=== PATIENT | female | born 1975 | race Caucasian/White ===

== ENCOUNTER 2019-05-05 08:20 | Inpatient (IN) ==
--- NOTE | 2019-04-20 09:15 | PAT Medication Instructions ---
Medication Instructions Date of Service April 20, 2019 Home Medications clonazepam 0.5 mg PO DAILY fluoxetine [Prozac] 40 mg PO QAM metoclopramide HCl 10 mg PO UD PRN omeprazole 40 mg PO QAM oxycodone 15 mg PO QID ranitidine HCl [Zantac 75] 75 mg PO HS tizanidine [Zanaflex] 4 mg PO Q8H PRN trazodone 400 mg PO HS 09/14/18 Stool Softeners And Dulcalox 1 dose UD acetaminophen [Tylenol Extra Strength] 1,000 mg PO QAM aripiprazole [Abilify] 20 mg PO HS zolpidem 10 mg PO HS DO NOT take the morning of surgery metoclopramide HCl 10 mg PO UD PRN tizanidine [Zanaflex] 4 mg PO Q8H PRN Stool Softeners And Dulcalox 1 dose UD Take morning of surgery With a small sip of water, OTHERWISE NOTHING TO EAT OR DRINK AFTER MIDNIGHT: clonazepam 0.5 mg PO DAILY fluoxetine [Prozac] 40 mg PO QAM omeprazole 40 mg PO QAM oxycodone 15 mg PO QID (okay to take up to 4 hours prior to surgery if needed) acetaminophen [Tylenol Extra Strength] 1,000 mg PO QAM (okay to take up to 4 hours prior to surgery if needed) Take evening before surgery metoclopramide HCl 10 mg PO UD PRN (if needed) oxycodone 15 mg PO QID ranitidine HCl [Zantac 75] 75 mg PO HS tizanidine [Zanaflex] 4 mg PO Q8H PRN (if needed) trazodone 400 mg PO aripiprazole [Abilify] 20 mg PO HS zolpidem 10 mg PO HS Other Notes If you have any questions please call us at [phone] or [phone] or [phone] or [phone]
--- NOTE | 2019-04-21 08:16 | Anesthesiology Consultation ---
Date of Service April 21, 2019 Assessment & Plan (1) Encounter for pre-operative examination: - Awaiting PCP office visit scheduled 04/25 (JEANNE Luis). - Patient taking oxycodone 15mg QID- t/c ketamine infusion; to discuss further with anesthesiologist assigned to case. Chart Review Chart Review: Patient seen in Pre Admission Testing Teaching & Discussion Pre-Anesthesia Teaching/Discussion Notes: Instructed NPO after midnight before surgery,except medications with 15 cc of water. Medication instructions provided according to the PAT guidelines. History Surgery Operation Date: 05/05/19 07:45 Proposed Procedures p L2-L5 Decompression and Fusion with Spinal Cord Monitoring - Mario Blake, Height/Weight Height: 5 ft 5.5 in Weight: 91.5 kg Allergies Allergy/AdvReac Type Severity Reaction Status Date / Time Sulfa (Sulfonamide AdvReac Unknown Rash Verified 04/17/19 08:20 Antibiotics) Medications Home Medications Medication Instructions Recorded Confirmed Last Taken clonazepam 0.5 mg PO DAILY 09/14/18 04/17/19 09/14/18 06:00 fluoxetine [Prozac] 40 mg PO QAM 09/14/18 04/17/19 04/17/19 metoclopramide HCl 10 mg PO UD PRN 09/14/18 04/17/19 09/13/18 omeprazole 40 mg PO QAM 09/14/18 04/17/19 04/17/19 oxycodone 15 mg PO QID 09/14/18 04/17/19 09/14/18 06:00 ranitidine HCl [Zantac 75] 75 mg PO HS 09/14/18 04/17/19 09/13/18 tizanidine [Zanaflex] 4 mg PO Q8H PRN 09/14/18 04/17/19 09/13/18 trazodone 400 mg PO HS 09/14/18 04/17/19 09/13/18 Stool Softeners And Dulcalox 1 dose UD 04/17/19 04/17/19 Unknown acetaminophen [Tylenol Extra 1,000 mg PO QAM 04/17/19 04/17/19 04/17/19 Strength] aripiprazole [Abilify] 20 mg PO HS 04/17/19 04/17/19 Unknown zolpidem 10 mg PO HS 04/17/19 04/17/19 Unknown Past Medical History Medical History (Updated 04/21/19 @ 14:02 by Cadence Rossi) Anxiety Arthritis cervical Asthma + chronic cough Bipolar disorder Chronic kidney disease Depression GERD (gastroesophageal reflux disease) controlled Graves disease per patient, has never been on medications/euthyroid on 04/21/19 labs History of blood transfusion 3+ years ago in setting of bleeding related to heavy menstrual bleeding History of seizures "anxiety" related- no seizures x 2 years Hives related to "nerves" Menopause per records Menorrhagia Obesity Peptic ulcer disease Pulmonary embolism 3 years ago- no issues since Radiculopathy with lower extremity symptoms Scoliosis Yeast infection "chronic" Exercise / Class Metabolic Activity III < 4 Walking/Shop/Light housework (uses walker PRN) Past Surgical History Surgical History History of cholecystectomy History of colonoscopy History of endoscopy History of surgery L LEG X2/HARDWARE History of surgery HX MORPHINE PAIN PUMP AND SINCE REMOVED History of tonsillectomy History of urologic surgery BLADDER STRETCH Past Anesthesia History No Family Hx of Anesthesia Complications and Other Patient report initial awareness with cholecystectomy/tonsillectomy. Patient states she felt the "initial" cuts during cholecystectomy. History of PONV No Hx of PONV and Hx of Motion Sickness Social History Smoking Status: Never smoker Do You Dip or Chew Tobacco: No Hx Alcohol Use: No Hx Substance Use: No Review of Systems + reflux. Chronic cough. Patient denies chest pain, shortness of breath, wheezing, palpitations. Physical Exam Vital Signs VITALS BP 112/74 P 76 TEMP 98.2 SP02 97%RA RESP 18 PHYSICAL Full neck and c-spine range of motion. Full TMJ range of motion. TMD 4 finger breaths Mallampati Score 3 Dentition: missing side Lungs: clear throughout to auscultation Cardiac: regular rate and rhythm, no murmurs noted Spine: normal Carotid arteries: negative bruit Extremities: no edema Testing Laboratory Results 04/21/19 08:34 04/21/19 08:34 PT 10.1 Seconds (9.0-12.0) 04/21/19 08:34 INR 1.0 (0.9-1.1) 04/21/19 08:34 APTT 25.7 Seconds (21.0-31.0) 04/21/19 08:34 Urine Color Yellow 04/21/19 08:34 Urine Appearance Clear (Clear) 04/21/19 08:34 Urine pH 5.5 (4.5-7.5) 04/21/19 08:34 Ur Specific [place] 1.019 (1.000-1.030) 04/21/19 08:34 Urine Protein Negative (Negative) 04/21/19 08:34 Urine Glucose (UA) Negative (Negative) 04/21/19 08:34 Urine Ketones Negative (Negative) 04/21/19 08:34 Urine Nitrite Negative (Negative) 04/21/19 08:34 Ur Leukocyte Esterase Trace (Negative) H 04/21/19 08:34 Urine WBC (Auto) 1-5 /hpf (0-5) 04/21/19 08:34 Urine RBC (Auto) 0-4 /hpf (0-4) 04/21/19 08:34 U Hyaline Cast (Auto) 1-5 /lpf (0-5) 04/21/19 08:34 U Epithel Cells (Auto) 20-30 /lpf (0-5) H 04/21/19 08:34 Urine Bacteria (Auto) Negative (Negative) 04/21/19 08:34 Blood Type A Positive 04/21/19 08:34 Antibody Screen NEGATIVE 04/21/19 08:34 04/21/19 TSH 0.877 (WNL) Free T4 1.22 (WNL) Total T3 1.21 (WNL) Electrocardiogram Date: 04/21/19 NSR at 73bpm. NS ST/TWA. *unconfirmed report* Chest X-Ray Date: 04/21/19 Findings: + NAD
--- NOTE | 2019-04-21 09:14 | XRay Report ---
XR chest Pre-admission PA/Lat CLINICAL HISTORY: pat preoperative evaluation COMPARISON STUDY: No previous studies for comparison. FINDINGS: The bones soft tissues and hemidiaphragms are normal. The cardiomediastinal silhouette is n ormal. The lungs are clear. The pulmonary vasculature is normal. IMPRESSION: Negative chest. The above report was generated using voice recognition software. It may contain grammatical, syntax or spelling errors. Electronically signed by: Min Strange M.D. 04/21/2019 9:12 AM
[2019-04-21 10:08] LABS: Basophils # (auto) 0.03 K/uL (0-0.2); Basophils % (auto) 0.6 %; Eosinophils # (auto) 0.45 K/uL (0-0.5); Eosinophils % (auto) 8.8 %; Hematocrit (blood only) 39.4 % (37-47); Immature Granulocytes # (auto) 0.01 K/uL (0.00-0.02); Immature Granulocytes % (auto) 0.2 %; Lymphocytes % (auto) 27.3 %; Mean Corpuscular Hemoglobin 32.8 pg (25-34); Mean Corpuscular Volume 99.5 fL (80-100); Mean Platelet Volume 11.4 fL (7.4-10.4); Monocytes % (auto) 11.7 %; Neutrophils # (auto) 2.64 K/uL (1.4-6.5); Neutrophils % (auto) 51.4 %; Platelet Count 200 K/uL (130-400); RDW Coefficient of Variation 12.5 % (11.5-14.5); RDW Standard Deviation 45.3 fL (36.4-46.3); Red Blood Count 3.96 M/uL (4.2-5.4); White Blood Count 5.13 K/uL (4.8-10.8)
[2019-04-21 10:11] LABS: Appearance Urine Clear (Clear); Bacteria Urine Automated Negative (Negative); Bilirubin Urine Negative (Negative); Blood Urine Negative (Negative); Color Urine Yellow; Epithelial Cell Urine Auto 20-30 /lpf (0-5); Glucose Urine UA Negative (Negative); Ketones Urine Negative (Negative); Leukocyte Esterase Urine Trace (Negative); Nitrite Urine Negative (Negative); Protein Urine Negative (Negative); RBC Urine Automated 0-4 /hpf (0-4); Specific Gravity Urine 1.019 (1.000-1.030); Urobilinogen Urine Negative (Negative); pH Urine 5.5 (4.5-7.5)
[2019-04-21 10:14] LABS: BUN Creatinine Ratio 15.4 (10-20); Calcium 8.7 mg/dl (8.5-10.1); Creatinine Clr Calc Pharmacy 111.4 ml/min; Est GFR (African American) 117.2; Est GFR (Non-African American) 101.1; Potassium 3.5 mmol/L (3.5-5.1)
[2019-04-21 10:25] LABS: Partial Thromboplastin Ratio 0.9; Partial Thromboplastin Time 25.7 Seconds (21.0-31.0); Prothrombin Time 10.1 Seconds (9.0-12.0); T4 Free Thyroxine 1.22 ng/dl (0.8-1.6); Thyroid Stimulating Hormone 0.877 uIu/ml (0.300-4.500)
[~2019-05-05 08:20] MED LIST: ACETAMINOPHEN 500 MG TAB PO SCH; CEFAZOLIN 2000MG 2,000 MG/15 ML SYR IV SCH; CeleBREX 200 MG CAP PO SCH; GABAPENTIN 900 MG DOSE PO SCH; HYDROmorphone INJ 2 MG/ML SYR/VIAL ONE; LR 15ML/HR IV SCH; MIDAZOLAM HCL 1 MG/ML 2ML VIAL ONE; PATIENT'S OWN CONTROLLED MED SCH; fentaNYL citrate 100 MCG/2 ML VIAL ONE
[2019-05-05] MEDS ORDERED: HYDROmorphone INJ 2 MG/ML SYR/VIAL IV PRN (09:50)
[2019-05-05] MEDS ORDERED: MEPERIDINE HCL 25 MG/ML CARP IV PRN (09:50)
[2019-05-05] MEDS ORDERED: fentaNYL citrate 100 MCG/2 ML VIAL IV PRN (09:50)
[2019-05-05] MEDS ORDERED: LABETALOL HCL IV 5 MG/ML 20ML IV PRN (09:50)
[2019-05-05] MEDS ORDERED: ONDANSETRON INJ 2 MG/ML 2 ML VIAL IV PRN ×3 (09:50→15:40)
[2019-05-05] MEDS ORDERED: ATROPINE SULFATE 0.1 MG/ML 10ML SYR IV PRN (09:50)
[2019-05-05] MEDS ORDERED: PHENYLEPHRINE 100MCG/ML 5ML SYR IV PRN (09:50)
[2019-05-05] MEDS ORDERED: ePHEDrine sulfate 50 MG/ML AMP IV PRN (09:50)
--- NOTE | 2019-05-05 10:18 | History & Physical Bridge Note ---
Date of Service May 05, 2019 History & Physical Bridge Note I have examined the patient, reviewed the History & Physical and in the interval since the performance of the History & Physical I have noted the following changes of clinical significance: no changes noted
--- NOTE | 2019-05-05 10:19 | History & Physical Report ---
Date of Service May 05, 2019 Assessment & Plan (1) Neurogenic claudication due to lumbar spinal stenosis: Decompression fusion L2-S1 Present on Admission?: Yes History of Present Illness Chief Complaint: Back and bilateral leg pain Primary Care Provider: Ashlyn Stephenson PA-C This is a 44-year-old female who presents with chronic persistent back and bilateral leg pain. After failing extensive course of nonoperative care is here for surgical intervention. Allergies Allergy/AdvReac Type Severity Reaction Status Date / Time Sulfa (Sulfonamide AdvReac Unknown Rash Verified 05/05/19 09:24 Antibiotics) Home Medications Home Medications Medication Instructions Recorded Confirmed Type clonazepam 0.5 mg PO DAILY 09/14/18 05/05/19 History fluoxetine [Prozac] 40 mg PO QAM 09/14/18 04/17/19 History metoclopramide HCl 10 mg PO TID PRN 09/14/18 05/05/19 History omeprazole 40 mg PO QAM 09/14/18 04/17/19 History oxycodone 15 mg PO QID 09/14/18 05/05/19 History ranitidine HCl [Zantac 75] 75 mg PO HS 09/14/18 05/05/19 History tizanidine [Zanaflex] 4 mg PO Q8H PRN 09/14/18 05/05/19 History trazodone 400 mg PO HS 09/14/18 05/05/19 History Stool Softeners And Dulcalox 1 dose UD 04/17/19 05/05/19 History acetaminophen [Tylenol Extra 1,000 mg PO QAM 04/17/19 04/17/19 History Strength] aripiprazole [Abilify] 20 mg PO HS 04/17/19 05/05/19 History zolpidem 10 mg PO HS 04/17/19 05/05/19 History Past Med/Surg History Social History Preferred Language: Norwegian Communication Ability: Effective Communication Ability Comment: ANXIOUS Fire Management Officer Required: No Beliefs That Will Affect Care: Jew Jew Beliefs: [place] ANGLICAN Current Living Situation: Family Other Information That Helps Us Care for You: No Feels Safe at Home: Yes Smoking Status: Never smoker Do You Dip or Chew Tobacco: No ; Hx Alcohol Use: No Hx Substance Use: No Physical Exam Physical Exam: Patient is alert and oriented neurologically intact. Results & Data Vital Signs (Past 12 Hours) Vital Signs Temp Pulse Resp BP Pulse Ox 05/05/19 09:42 36.7 C 66 18 116/72 98
[2019-05-05] MEDS ORDERED: HYDROmorphone INJ 2 MG/ML SYR/VIAL ONE ×2 (10:25→13:55)
[2019-05-05] MEDS ORDERED: BUPIVACAINE/EPINEPHRINE 0.5% MPF 1:200,000 10 ML VIAL ONE (10:27)
[2019-05-05] MEDS ORDERED: BACITRACIN INJ 50,000 UNIT VIAL ONE (10:27)
[2019-05-05] MEDS ORDERED: PROMETHAZINE HCL 12.5 MG in SODIUM CHLORIDE 0.9% 50 ML IV PRN ×2 (11:01→15:40)
[2019-05-05] MEDS ORDERED: KETAMINE HCL 500 MG in SODIUM CHLORIDE 0.9% 490 ML IV STA (11:01)
[2019-05-05] MEDS ORDERED: MIDAZOLAM HCL 1 MG/ML 2ML VIAL IV PRN (11:01)
[2019-05-05] MEDS ORDERED: fentaNYL citrate 100 MCG/2 ML VIAL ONE ×7 (11:05→13:53)
[2019-05-05] MEDS ORDERED: THROMBIN FOR SOLN 20000 UNIT KIT ONE (11:10)
[2019-05-05] MEDS ORDERED: ESMOLOL HCL INJ 10 MG/ML 10ML VIAL IV ONE (11:28)
[2019-05-05] MEDS ORDERED: ONDANSETRON INJ 2 MG/ML 2 ML VIAL ONE (11:28)
[2019-05-05] MEDS ORDERED: METOPROLOL TARTRATE 1 MG/ML VIAL IV ONE (11:28)
[2019-05-05] MEDS ORDERED: ROCURONIUM BROMIDE 10 MG/ML 5 ML VIAL ONE (11:28)
[2019-05-05] MEDS ORDERED: NEOSTIGMINE METHYLSULFATE 1 MG/ML 10ML VIAL ONE (11:28)
[2019-05-05] MEDS ORDERED: DEXAMETHASONE SOD INJ 4 MG/ML VIAL ONE (11:28)
[2019-05-05] MEDS ORDERED: LIDOCAINE HCL 2% 2 ML VIAL/AMP(20MG/ML) INFIL ONE (11:28)
[2019-05-05] MEDS ORDERED: LABETALOL HCL IV 5 MG/ML 20ML IV ONE (11:28)
[2019-05-05] MEDS ORDERED: PROPOFOL IV EMULSION 10 MG/ML 20 ML VIAL IV ONE (11:28)
[2019-05-05] MEDS ORDERED: GLYCOPYRROLATE 0.2 MG/ML VIAL ONE (11:28)
[2019-05-05] MEDS ORDERED: FLOSEAL HEMOSTATIC MATRIX 10ML TOP ONE (13:39)
--- NOTE | 2019-05-05 13:49 | Fluoroscopy Report ---
FL lumbar spine 2-3V CLINICAL HISTORY: L2-L5 DECOMPRESSION AND FUSION POSSIBLE INTERBODY COMPARISON STUDY: 09/14/2018 FLUOROSCOPY TIME: 1 minute 13 seconds NUMBER OF FLUOROSCOPIC IMAGES: 3 FINDINGS: Findings consistent with a lumbar laminectomy and fusion. IMPRESSION: Image intensifier assistance for lumbar laminectomy and fusion. The above report was generated using voice recognition software. It may contain grammatical, syntax or spelling errors. Electronically signed by: Min Strange M.D. 05/05/2019 1:48 PM
--- NOTE | 2019-05-05 14:12 | Operative Report ---
Post Operative Report Pre & Post Diagnosis Operation Date: 05/05/19 10:25 Pre-Op Diagnosis: LUMBAR SPINAL STENOSIS W/NEUROGENIC CLAUDICATION Post-Op Diagnosis: LUMBAR SPINAL STENOSIS W/NEUROGENIC CLAUDICATION I identified the patient and participated in the time-out.: Yes Procedure Operation Date: 05/05/19 10:25 Actual Procedures #1 lumbar decompression with bilateral medial facetectomies foraminotomies L2-3 L3-4 L4-5 L5-S1. #2 posterior spinal fusion L2-S1. #3 placement posterior segmental instrumentation L2-S1. #4 interbody fusion L4-5 L5-S1. #5 placed a peek cage 11 x 22 mm at L5-S1 and 10 x 22 mm at L4-5. #6 placement of locally harvested morselized autograft in the posterior lateral gutters. #7 placement infuse collagen sponge bone mass graft in the posterior lateral gutters and ostial amp and interbody space. Surgeon Mario Blake, DO Wire Cutter None Estimated Blood Loss 650 Findings See Below The patient is 5 foot 5 inches tall weighing over 89 kg with a BMI in excess of 32. This combined with an EBL of over 600 cc created significant technical difficulty and complexity perform the procedure. She did require her longest retractors and instruments in order to perform her procedure. This added at least 50% increase in operative time. Specimens None Indications -year-old female presents with above-mentioned diagnosis after failing extensive course of nonoperative care elected with above-mentioned procedure. Description of Procedure Patient was met with identified informed consent obtained. Patient was then taken to the operative suite underwent intubation placed in a prone position the Sage table on top of the Jordan frame. All bony prominences well-padded eyes inspected to ensure no external pressure placed upon up at this point the lumbar spine is prepped and draped in sterile fashion. Sharp dissection with the assistance of Bovie cautery was performed down to and exposing the lamina and transverse processes of L2 L3-L4-L5 bilaterally. From caudal cephalad fashion laminectomy of L5 L4 L3 and L2 was performed including bilateral medial facetectomies and foraminotomies addressing severe spinal stenosis. Pedicle screws were then placed in L2 L3-L4-L5 and S1 levels bilaterally with assistance of fluoroscopy. Proper sized teodoro was then placed. By way of a transforaminal portion right complete discectomy of L5 was was performed endplates curetted to subcortical and bone and an 11 x 22 mm peek cage filled with osteo-bone graft tapped in position. Then proceeded to L4-[address] of a transforaminal portion right complete discectomy performed endplates curetted to subcortical being bone and a 10 x 22 mm peek cage filled with osteo-bone graft tapped in position. The rods were then locked in final position bilaterally. The transverse processes of L2 L3-L4-L5 and sacral ala bur to subcortical bleeding bone. Infuse collagen sponge master graft and local autograft was placed in the posterior lateral gutters. 15 round SORAIDA drain inserted. The incision was then closed with 1 Vicryl the fascia 2-0 Vicryl subcutaneously and 4 Monocryl for 5 skin closure. Steri-Strip sterile dressings placed. Patient will continue to PACU stable disc. Please note spinal cord monitoring was utilized that the procedure no changes noted. I attest to the content of the Intraoperative Record and any orders documented therein. Any exceptions are noted below.
--- NOTE | 2019-05-05 14:55 | Anesthesiology Progress Note ---
Date of Service May 05, 2019 Anesthesia Post Procedure Vital Signs Vital Signs: Temp Pulse Pulse Resp BP Pulse Ox 05/05/19 14:45 74 14 142/80 H 100 05/05/19 14:35 71 24 149/75 H 100 05/05/19 14:25 72 12 142/78 H 100 05/05/19 14:15 36.6 C 84 8 L 147/83 H 100 05/05/19 09:42 36.7 C 66 18 116/72 98 Pain Intensity Right Back: Pain Intensity: 4 Transfer of Care Handoff Completed per policy Notes Mental Status: alert / awake / arousable Patient Amnestic to Procedure: Yes Nausea / Vomiting: adequately controlled Pain: adequately controlled and see Notes below Airway Patency, RR, SpO2: stable & adequate BP & HR: stable & adequate Hydration State: stable & adequate Anesthetic Complications: no major complications apparent and Pt Satisfied with anesthetic care Notes: The patient has a ketamine infusion as per pain medicine protocol. She will be monitored overnight in the ICU. She was signed out to Dr. Ventura.
--- NOTE | 2019-05-05 15:18 | Critical Care Consultation ---
Date of Consultation May 05, 2019 Assessment & Plan (1) Neurogenic claudication due to lumbar spinal stenosis: Reason Critically Ill: Violet is a 44-year-old female with a past medical history of anxiety, asthma, bipolar disorder, chronic kidney disease, GERD, Graves', seizures, pulmonary embolism, and radiculopathy who was admitted to the hospital for scheduled spinal decompression and fusion of L2-S1 after failing an extensive course of nonoperative treatment. She has been transferred for the ICU for ketamine postoperative pain management. Neuro - [facility] ICU: Negative Analgesia/sedation: Ketamine GTT. Hydromorphone 1 mg IV every 3 hours as needed for breakthrough if needed History of TIA Oriented, no residual deficits. Unknown source, patient denies heart arrhythmia/A. fib. History of bipolar Aripiprazole 20 mg p.o. nightly PRE PRESS OPERATOR clonazepam 0.5 mg p.o. daily Lorazepam 0.5 mg IV every 8 hours PRN for agitation if needed Cardiac - History of PE, Patient denies history of cardiac disease and DVT. Preop EKG 04/21/2019: Normal sinus rhythm Respiratory - Preop chest x-ray: No acute findings History of pulmonary embolism No history of DVT, PE, or cancer Stroke in her mother at age 70, no other family history of malignancy or hypercoagulability per patient On 3 L nasal cannula postsurgically. Titrate O2 to SPO2 greater than 90% GI - N.p.o. while on ketamine RENAL/LYTES - Preop BMP showed no sodium or potassium abnormalities Preop creatinine 0.72, wnl Replace lytes as needed. Morning BMP - No acute concerns, preop UA bland ENDO - Reported history of Graves - Preop TSH 0.877, free T4 1.22. Euthyroid. HEME - Preop: -Hemoglobin 13.0 - Platelet count 200 - INR 1.0 - APTT normal SORAIDA drains as below, no acute bleeding Type and screen on file CBC in the morning, follow clinically for signs of bleeding ID - - No concerns for infection at this point.WBC 5.13 preop. - Received preoperative cefazolin - CBC as above MSK - Spinal decompression and fusion of L2-S1 - No intraoperative complications - Lumbar spine x-ray: Findings consistent with a lumbar laminectomy and fusion. SORAIDA drain in place, draining serosanguineous/sanguinous fluid Patient not rolled, dressings not observed. Primary management per surgical team LINES/IV ACCESS - PIVs intact. DVT PROPHYLAXIS - SCDs. Pharmacal prophylaxis contraindicated in the postsurgical setting. Thank you for allowing us to be part of this patient's care. Please refer to Dr. Ventura's documentation for any further recommendations. (2) Admitted to intensive care unit: (3) Transient ischemic attack (TIA): (4) Pulmonary embolism: (5) History of seizures: (6) History of blood transfusion: (7) Graves disease: (8) GERD (gastroesophageal reflux disease): (9) Arthritis: (10) Asthma: Supervising Physician Co-Signing Physician Notes Dr. Jones was resident physician during care of patient. I separately evaluated patient for alvarado portions of the history and the exam. I was present during the critical portion of medical decision making, and I discussed the case with the resident. I generally agree with the findings and plan. During my evaluation the patient was still complaining of 10 out of 10 pain stating that the pain was worse postoperatively then perioperatively, her ketamine infusion was running at 0.1 mg/kg after a single bolus and rate adjustment 2.25 mg/kg patient was able to sleep and vital signs improved suggesting significant improvement in the patient's pain. She remains in the ICU for hemodynamic monitoring with end-tidal CO2. Anticipate a total of 24 hours ketamine infusion. History of Present Illness Reason for Consultation: Mario Blake DO Requesting Physician: Mario Blake DO Attending Physician: Mario Blake DO History of Present Illness Violet is a 44-year-old female with a past medical history of anxiety, asthma, bipolar disorder, chronic kidney disease, GERD, Graves', seizures, pulmonary embolism, and radiculopathy who was admitted to the hospital for scheduled spinal decompression and fusion of L2-S1 after failing an extensive course of nonoperative treatment. She has been transferred for the ICU for ketamine p ostoperative pain management. Per operative report from Dr. Blake patient underwent "#1 lumbar decompression with bilateral medial facetectomies foraminotomies L2-3 L3-4 L4-5 L5-S1. #2 posterior spinal fusion L2-S1. #3 placement posterior segmental instrumentation L2-S1. #4 interbody fusion L4-5 L5-S1. #5 placed a peek cage 11 x 22 mm at L5- S1 and 10 x 22 mm at L4-5. #6 placement of locally harvested morselized autograft in the posterior lateral gutters. #7 placement infuse collagen sponge bone mass graft in the posterior lateral gutters and ostial amp and interbody space." On arrival to the unit Violet is somnolent but arouses to voice and tactile stimulation. She is oriented x3. She reports she has a history of pulmonary embolism approximately 2 years ago of an unknown source. She reports she was on a blood thinner for couple of weeks, and then it was discontinued and she has not needed a blood thinner since. She has never had a DVT, but several years ago she was told that she had a TIA of unknown origin. She denies any family history of blood clots, or DVTs but notes her mother had a stroke at age 70. She does not have a personal or family history of cancer. She reports that she underwent back surgery for pain which did not improve "with anything ". She reports she is in 10 out of 10 pain, pain is localized to her mid lower back and does not radiate to her upper back or down her legs. She does not have any numbness or tingling. She denies chest pain, chest pressure, shortness of breath, difficulty breathing. She reports she is fatigued, and "hurts ". No other questions or concerns at time of visit. Violet has a past medical history of anxiety, asthma, bipolar disorder, chronic kidney disease, GERD, Graves', seizures, pulmonary embolism, and radiculopathy. To review this past episode of TIA, patient denies this. She has a history of Graves' per patient, but has not been on any thyroid medications and was euthyroid on 04/21/2019. PRE PRESS OPERATOR medications: Aripiprazole, clonazepam, fluoxetine, omeprazole, oxycodone, ranitidine, tizanidine, trazodone, zolpidem She has a surgical history of cholecystectomy, tonsil surgery. Social history: No tobacco use, no alcohol use, no substance use. Allergies Allergy/AdvReac Type Severity Reaction Status Date / Time Sulfa (Sulfonamide AdvReac Unknown Rash Verified 05/05/19 09:24 Antibiotics) Home Medications Home Medications Medication Instructions Recorded Confirmed Type clonazepam 0.5 mg PO DAILY 09/14/18 05/05/19 History fluoxetine [Prozac] 40 mg PO QAM 09/14/18 04/17/19 History metoclopramide HCl 10 mg PO TID PRN 09/14/18 05/05/19 History omeprazole 40 mg PO QAM 09/14/18 04/17/19 History oxycodone 15 mg PO QID 09/14/18 05/05/19 History ranitidine HCl [Zantac 75] 75 mg PO HS 09/14/18 05/05/19 History tizanidine [Zanaflex] 4 mg PO Q8H PRN 09/14/18 05/05/19 History trazodone 400 mg PO HS 09/14/18 05/05/19 History Stool Softeners And Dulcalox 1 dose UD 04/17/19 05/05/19 History acetaminophen [Tylenol Extra 1,000 mg PO QAM 04/17/19 04/17/19 History Strength] aripiprazole [Abilify] 20 mg PO HS 04/17/19 05/05/19 History zolpidem 10 mg PO HS 04/17/19 05/05/19 History Patient History Social History Preferred Language: Armenian Communication Ability: Effective Communication Ability Comment: ANXIOUS Group Insurance Special Agent Required: No Beliefs That Will Affect Care: Roman Catholic Roman Catholic Beliefs: [employer] Current Living Situation: Family Other Information That Helps Us Care for You: No Feels Safe at Home: Yes Smoking Status: Never smoker Do You Dip or Chew Tobacco: No ; Hx Alcohol Use: No Hx Substance Use: No Review of Systems Review of Systems: Constitutional: Denies fever, chills Eyes: Denies blurry vision, vision change ENT: Endorses scratchy throat, denies sore throat. Cardiovascular: Denies Chest pain, chest pressure, palpitations Respiratory: Denies shortness of breath, cough, sputum production, difficulty breathing Gastrointestinal: Denies abdominal pain, nausea, vomiting Genitourinary: Denies dysuria Musculoskeletal: Denies weakness, muscle aches/pain, joint aches/pain Integumentary: Endorses a history of caf au lait spots (different colored skin tones) particularly over her shoulders. Denies new rash, lesions, bruising Neurological: Denies headache, numbness, tingling Physical Exam Physical Exam: General: A&Ox3. Appears in pain. Cooperative. Answers questions appropriately, able to follow one-step commands. HEENT: Atraumatic, normocephalic. Pulm: CTAB A&P. -wheezes, -rales, -rhonchi. Symmetrical chest rise. No increase work of breathing. No respiratory distress. Cardiac: RRR, -mrg. Radial pulses intact and symmetrical. Abdominal: Nontender, nondistended, soft. BS present. MSK: SORAIDA drain in place on right, draining serosanguineous/sanguinous fluid approximately 50 cc. Cvicu Rn strength intact bilaterally. Able to wiggle toes bilaterally. Sensation to soft touch in toes and fingers intact bilaterally. Patient not rolled to examine surgical site at this time, defer to primary team. CN II: Visual rider are full to confrontation. Pupils are constricted, 1-2 mm bilaterally. Visual acuity grossly intact. CN III, IV, : At primary gaze, there is no eye deviation. CN V: Facial sensation is intact to soft touch in all 3 divisions bilaterally. CN VII: No facial asymmetry, full strength to eyebrow raise, smile, eye close, and cheek puff. CN VII: Hearing is grossly intact. CN IX, X: Palate elevates symmetrically. Phonation is normal without dysarthria. CN XI: Shoulder shrug are intact CN XII: Tongue protrudes midline. Reflexes: Patellar, Achilles, Brachial DTR 2+ Bilaterally Results & Data Vital Signs (Past 12 Hours) Vital Signs Temp Pulse Pulse Resp BP Pulse Ox 05/05/19 14:55 36.8 C 70 14 152/76 H 100 05/05/19 14:45 74 14 142/80 H 100 05/05/19 14:35 71 24 149/75 H 100 05/05/19 14:25 72 12 142/78 H 100 05/05/19 14:15 36.6 C 84 8 L 147/83 H 100 05/05/19 09:42 36.7 C 66 18 116/72 98 Resident Activity Tracking Resident Involvement: Resident Care Provided Care Provided: Adult Hospital Medicine
[2019-05-05] MEDS ORDERED: DO NOT ADMINISTER PNEUMOCOCCAL VACCINE PRN (15:40)
[2019-05-05] MEDS ORDERED: FAMOTIDINE 20 MG TAB PO PRN (15:40)
[2019-05-05] MEDS ORDERED: MAGNESIUM HYDROXIDE SUSP 30 ML UDC PO PRN (15:40)
[2019-05-05] MEDS ORDERED: NALOXONE HCL 0.4 MG/1 ML VIAL/CARP IV PRN (15:40)
[2019-05-05] MEDS ORDERED: ONDANSETRON 4 MG OD TAB PO PRN (15:40)
[2019-05-05] MEDS ORDERED: DO NOT ADMINISTER FLU VACCINE PRN (15:40)
[2019-05-05] MEDS ORDERED: METOCLOPRAMIDE HCL 10 MG TABLET PO PRN (15:40)
[2019-05-05] MEDS ORDERED: TIZANIDINE HCL 4 MG TABLET PO PRN (15:40)
[2019-05-05] MEDS ORDERED: LORazepam 0.5 MG TAB PO PRN (15:40)
[2019-05-05] MEDS ORDERED: LORazepam 0.5 MG/1 ML VIAL IV PRN (15:40)
[2019-05-05] MEDS ORDERED: bisacodyL 10 MG SUPP PR PRN (15:40)
[2019-05-05] MEDS ORDERED: HYDROmorphone INJ 0.5 MG/0.5 ML SYR IV PRN (15:40)
[2019-05-05] MEDS ORDERED: METOCLOPRAMIDE HCL INJ 5 MG/ML 2 ML VIAL IV PRN (15:40)
[2019-05-05] MEDS ORDERED: ALUMINUM/MAGNESIUM SUSP 30 ML UDC PO PRN (15:40)
[2019-05-05] MEDS ORDERED: SOD PHOSPHATE/SOD BIPHOSPHATE ENEMA 132 ML BTL PR PRN (15:40)
[2019-05-05] MEDS ORDERED: ICU PROTOCOL FOR HYPERGLYCEMIA PRN (16:02)
[2019-05-05] MEDS: KETAMINE HCL 500 MG in SODIUM CHLORIDE 0.9% 490 ML IV SCH (16:14)
[2019-05-05] MEDS ORDERED: KETAMINE HCL INJ 50 MG/ML 10 ML VIAL IV STA (16:52)
[2019-05-05] MEDS: LACTATED RINGER'S 1,000 ML IV SCH (16:55)
[2019-05-05] MEDS: GABAPENTIN 300 MG CAP PO SCH ×2 (16:56→21:24)
[2019-05-05] MEDS ORDERED: SODIUM CHLORIDE IV ONE (17:15)
[2019-05-05] MEDS ORDERED: KETAMINE HCL IV ONE (17:15)
[2019-05-05] MEDS: ACETAMINOPHEN 1,000 MG/100 ML VIAL IV PRN (17:59)
[2019-05-05] MEDS: CEFAZOLIN 2000MG 2,000 MG/15 ML SYR IV SCH (21:22)
[2019-05-05] MEDS: ARIPiprazole 10 MG TAB PO SCH (21:24)
[2019-05-05] MEDS: DOCUSATE SODIUM/SENNA 50/8.6MG TAB PO SCH (21:25)
[2019-05-06] MEDS: CEFAZOLIN 2000MG 2,000 MG/15 ML SYR IV SCH (02:50)
[2019-05-06 05:32] LABS: Basophils # (auto) 0.01 K/uL (0-0.2); Basophils % (auto) 0.1 %; Hematocrit (blood only) 34.5 % (37-47); Immature Granulocytes # (auto) 0.05 K/uL (0.00-0.02); Immature Granulocytes % (auto) 0.3 %; Lymphocytes # (auto) 1.37 K/uL (1.2-3.4); Lymphocytes % (auto) 8.9 %; Mean Corpuscular Hemoglobin 32.4 pg (25-34); Mean Corpuscular Hgb Conc 31.9 g/dL (32-36); Mean Corpuscular Volume 101.8 fL (80-100); Monocytes # (auto) 1.13 K/uL (0.11-0.59); Monocytes % (auto) 7.3 %; Neutrophils % (auto) 83.4 %; Platelet Count 204 K/uL (130-400); RDW Coefficient of Variation 12.3 % (11.5-14.5); Red Blood Count 3.39 M/uL (4.2-5.4); White Blood Count 15.46 K/uL (4.8-10.8)
[2019-05-06] MEDS: POLYETHYLENE (MIRALAX) 17 GM PACK PO SCH ×3 (05:52→16:56)
[2019-05-06] MEDS: GABAPENTIN 300 MG CAP PO SCH ×2 (05:52→13:12)
[2019-05-06 06:00] LABS: BUN Creatinine Ratio 7.8 (10-20); Calcium 8.8 mg/dl (8.5-10.1); Creatinine Clr Calc Pharmacy 91.2 ml/min; Est GFR (African American) 92.6; Est GFR (Non-African American) 79.9
--- NOTE | 2019-05-06 06:44 | Critical Care Progress Note ---
Date of Service May 06, 2019 Assessment & Plan (1) Neurogenic claudication due to lumbar spinal stenosis: Reason Critically Ill: Violet is a 44-year-old female with a past medical history of anxiety, asthma, bipolar disorder, chronic kidney disease, GERD, Graves', seizures, pulmonary embolism, and radiculopathy who was admitted to the hospital for scheduled spinal decompression and fusion of L2-S1 after failing an extensive course of nonoperative treatment. She has been transferred for the ICU for ketamine postoperative pain management. Summary: Violet is a 44-year-old female here for chronic back pain status post spinal fusion who is been admitted to the ICU for management of a 24-hour ketamine infusion washout to help improve pain control/lower opioid requirements. Doing well, anticipate ketamine wean to be complete late morning/early afternoon and will likely be stable for downgrade to Ortho at that time. No acute concerns overnight. Neuro - [facility] ICU: Negative Analgesia/sedation: Ketamine GTT. Hydromorphone 1 mg IV every 3 hours as needed for breakthrough if needed Wean ketamine, currently at 0.2. May continue clonazepam as below. No signs of psychosis or mood change. History of TIA Oriented, no residual deficits. Unknown source, patient denies heart a rrhythmia/A. fib. History of bipolar Aripiprazole 20 mg p.o. nightly Continue MANAGING MANAGER clonazepam 0.5 mg p.o. daily Lorazepam 0.5 mg IV every 8 hours PRN for agitation if needed Cardiac - History of PE, Patient denies history of cardiac disease and DVT. Preop EKG 04/21/2019: Normal sinus rhythm Respiratory - Preop chest x-ray: No acute findings History of pulmonary embolism No history of DVT, PE, or cancer Stroke in her mother at age 70, no other family history of malignancy or hypercoagulability per patient Wean to 2L nasal cannula postsurgically. Titrate O2 to SPO2 greater than 90% GI - Clear liquid RENAL/LYTES - Preop BMP showed no sodium or potassium abnormalities Preop creatinine 0.72, wnl Sodium, potassium within normal limits Creatinine 0.87, near baseline Morning BMP - No acute concerns, preop UA bland ENDO - Reported history of Graves - Preop TSH 0.877, free T4 1.22. Euthyroid. HEME - Preop: -Hemoglobin 11 - Platelet count 204 - INR 1.0 on prior check - APTT normal SORAIDA drains as below Type and screen on file CBC in the morning, follow clinically for signs of bleeding ID - - No concerns for infection at this point.WBC 5.13 preop. - Received preoperative cefazolin - CBC as above MSK - Spinal decompression and fusion of L2-S1 - No intraoperative complications - Lumbar spine x-ray: Findings consistent with a lumbar laminectomy and fusion. SORAIDA drain in place, draining about 25 cc of sanguinous fluid this morning. Per nursing shift MD end of shift for approximately 150 cc of sanguinous material. Sitting up in a chair this morning, dressing C/D/I. Patient reports her pain feels similar to before admission, but she has been able to get some sleep. Tizanidine 4 mg p.o. every 8 hours, pain management as above LINES/IV ACCESS - PIVs intact. Prophylaxis DVT: SCDs. Pharmacal prophylaxis contraindicated in the postsurgical setting. GERD: Protonix Thank you for allowing us to be part of this patient's care. Please refer to Dr. Ventura's documentation for any further recommendations. (2) Admitted to intensive care unit: (3) Transient ischemic attack (TIA): (4) Pulmonary embolism: (5) History of seizures: (6) History of blood transfusion: (7) Graves disease: (8) GERD (gastroesophageal reflux disease): (9) Arthritis: (10) Asthma: Supervising Physician Co-Signing Physician Notes Dr. Jones was resident physician during care of patient. I separately evaluated patient for alvarado portions of the history and the exam. I was present during the critical portion of medical decision making, and I discussed the case with the resident. I generally agree with the findings and plan. During my evaluation the patient was resting comfortably. She has not required narcotic medications since the operating room, we have been decreasing her total infusion. We have discontinued the fusion at 11 AM and are proceeding with her normal narcotic medication which is ordered by Dr. Blake. I discussed the case with Dr. Blake and she is stable for downgrade out of the ICU. Subjective Violet is seen at the bedside this morning. She is sitting up in a chair, reports that she is still in pain, but feels better than last night. She reports her pain feels similar to her preoperative pain this morning, she would rate both her preoperative pain and current pain at 8/10 and limited to her lower mid back. She denies fever, chills, sweats overnight. No chest pain, shortness of breath overnight. No change in vision, no focal weakness, no numbness and tingling. No hallucinations, denies confusion. She reports she is very anxious, and would like to get up and out of bed and moving as soon as possible with physical therapy. Does not voice other questions or concerns this morning. Review of Systems Review of Systems: Constitutional: Denies fever, chills. Endorses fatigue Eyes: Denies vision change, endorses blurry vision at baseline and does not currently have her glasses ENT: Denies ear pain, sore throat Cardiovascular: Denies Chest pain, chest pressure, palpitations, extremity swelling Respiratory: Denies shortness of breath, sputum production, difficulty breathing Gastrointestinal: Denies abdominal pain, nausea, vomiting Genitourinary: Denies dysuria Musculoskeletal: Endorses back pain as noted in subjective. Denies new joint/muscle pain Integumentary:Denies new rash, lesions, bruising Neurological: Denies headache, auditory/visual hallucinations, numbness, tingling, focal weakness Physical Exam Physical Exam: General: A&Ox3. NAD. Cooperative. HEENT: Atraumatic, normocephalic. Pulm: CTAB A&P. -wheezes, -rales, -rhonchi. Symmetrical chest rise. No increase work of breathing. No respiratory distress. Cardiac: RRR, -mrg. Radial pulses intact and symmetrical. Abdominal: Nontender, nondistended, soft. BS present. Results & Data Vital Signs (Past 12 Hours) Vital Signs Temp Pulse Resp BP Pulse Ox 05/06/19 06:00 90 22 143/77 H 94 05/06/19 05:00 80 14 131/77 99 05/06/19 04:00 36.7 C 70 12 123/81 100 05/06/19 03:00 61 20 111/67 100 05/06/19 02:00 63 18 113/81 99 05/06/19 01:00 64 18 98/60 L 99 05/06/19 00:00 36.7 C 68 15 106/69 98 05/05/19 23:00 67 20 140/56 L 99 05/05/19 22:00 68 20 148/80 H 100 05/05/19 21:00 65 12 159/83 H 100 05/05/19 20:00 36.7 C 61 14 130/66 100 05/05/19 19:00 57 L 19 143/75 H 100 Resident Activity Tracking Resident Involvement: Resident Care Provided Care Provided: Adult Hospital Medicine
[2019-05-06] MEDS: LACTATED RINGER'S 1,000 ML IV SCH ×2 (07:43→14:24)
[2019-05-06] MEDS: KETAMINE HCL 500 MG in SODIUM CHLORIDE 0.9% 490 ML IV SCH (08:01)
--- NOTE | 2019-05-06 08:51 | Billing Data ---
Coding Level of Care Code 59641 Inpt Consult Level 5
--- NOTE | 2019-05-06 10:05 | Anesthesiology Progress Note ---
Date of Service May 06, 2019 Anesthesia Post Procedure Vital Signs Vital Signs: Temp Pulse Pulse Resp BP BP Pulse Ox 05/06/19 08:00 37 C 94 H 93 H 16 107/62 98 05/06/19 06:00 90 22 143/77 H 94 05/06/19 05:00 80 14 131/77 99 05/06/19 04:00 36.7 C 70 12 123/81 100 05/06/19 03:00 61 20 111/67 100 05/06/19 02:00 63 18 113/81 99 05/06/19 01:00 64 18 98/60 L 99 05/06/19 00:00 36.7 C 68 15 106/69 98 05/05/19 23:00 67 20 140/56 L 99 05/05/19 22:00 68 20 148/80 H 100 05/05/19 21:00 65 12 159/83 H 100 05/05/19 20:00 36.7 C 61 14 130/66 100 05/05/19 19:00 57 L 19 143/75 H 100 05/05/19 18:30 61 130/74 100 05/05/19 18:25 62 129/73 100 05/05/19 18:20 62 122/69 100 05/05/19 18:15 64 129/71 100 05/05/19 18:10 66 100 05/05/19 18:05 60 100 05/05/19 18:00 65 144/79 H 100 05/05/19 17:55 67 100 05/05/19 17:50 65 100 05/05/19 17:45 68 155/92 H 100 05/05/19 17:40 66 100 05/05/19 17:35 67 100 05/05/19 17:30 68 143/63 H 100 05/05/19 17:27 68 100 05/05/19 17:15 65 140/81 100 05/05/19 17:05 67 19 100 05/05/19 17:00 65 130/76 100 05/05/19 16:52 64 16 100 05/05/19 16:45 62 150/79 H 100 05/05/19 16:30 63 143/82 H 100 05/05/19 16:15 64 133/89 100 05/05/19 16:00 65 152/79 H 100 05/05/19 15:45 71 144/76 H 100 05/05/19 15:30 65 143/68 H 100 05/05/19 15:15 36.7 C 66 147/79 H 100 05/05/19 14:55 36.8 C 70 14 152/76 H 100 05/05/19 14:45 74 14 142/80 H 100 05/05/19 14:35 71 24 149/75 H 100 05/05/19 14:25 72 12 142/78 H 100 05/05/19 14:15 36.6 C 84 8 L 147/83 H 100 Pain Intensity Right Back: Pain Intensity: 4 Back: Pain Intensity: 4 Notes Mental Status: alert / awake / arousable Patient Amnestic to Procedure: Yes Nausea / Vomiting: adequately controlled Pain: adequately controlled Airway Patency, RR, SpO2: stable & adequate BP & HR: stable & adequate Hydration State: stable & adequate Anesthetic Complications: no major complications apparent and Pt Satisfied with anesthetic care
--- NOTE | 2019-05-06 10:23 | Orthopedic Progress Note ---
Date of Service May 06, 2019 Assessment & Plan (1) Neurogenic claudication due to lumbar spinal stenosis: At this time she will finish her ketamine protocol and when cleared by the enrobing machine corder transferred to the orthopedic floor to initiate physical therapy. Present on Admission?: Yes Subjective Patient complaining of back pain only. No significant leg pain. Physical Exam Physical Exam: Patient is arousable. She has good strength testing lower extremities. Results & Data Vital Signs (Past 12 Hours) Vital Signs Temp Pulse Pulse Resp BP Pulse Ox 05/06/19 08:00 37 C 94 H 93 H 16 107/62 98 05/06/19 06:00 90 22 143/77 H 94 05/06/19 05:00 80 14 131/77 99 05/06/19 04:00 36.7 C 70 12 123/81 100 05/06/19 03:00 61 20 111/67 100 05/06/19 02:00 63 18 113/81 99 05/06/19 01:00 64 18 98/60 L 99 05/06/19 00:00 36.7 C 68 15 106/69 98 05/05/19 23:00 67 20 140/56 L 99
[2019-05-06] MEDS: ACETAMINOPHEN 1,000 MG/100 ML VIAL IV PRN (10:30)
[2019-05-06] MEDS: FLUOXETINE HCL 20 MG CAP PO SCH (10:32)
[2019-05-06] MEDS: PANTOprazole 40 MG TAB PO SCH (10:32)
[2019-05-06] MEDS: clonazePAM 0.5 MG TAB PO SCH (10:33)
[2019-05-06] MEDS: OXYCODONE HCL IR 5 MG TAB (IMMEDIATE RELEASE) PO PRN ×2 (11:54→15:58)
--- NOTE | 2019-05-06 14:06 | Billing Data ---
Coding Level of Care Code 39996 Subseq Hosp Care Lvl 3
[2019-05-06] MEDS: HYDROmorphone INJ 1 MG/ML SYRINGE IV PRN ×2 (19:18→22:17)
[2019-05-06] MEDS: TRAZODONE HCL 100 MG TAB PO SCH (21:33)
[2019-05-06] MEDS: DOCUSATE SODIUM/SENNA 50/8.6MG TAB PO SCH (21:33)
[2019-05-06] MEDS: ARIPiprazole 10 MG TAB PO SCH (21:33)
[2019-05-06] MEDS: ZOLPIDEM TARTRATE 10 MG TAB PO SCH (21:33)
[2019-05-07] MEDS: POLYETHYLENE (MIRALAX) 17 GM PACK PO SCH ×5 (00:13→23:18)
[2019-05-07] MEDS: OXYCODONE HCL IR 5 MG TAB (IMMEDIATE RELEASE) PO PRN ×2 (01:07→10:56)
[2019-05-07] MEDS: HYDROmorphone INJ 1 MG/ML SYRINGE IV PRN ×6 (02:25→21:51)
[2019-05-07] MEDS: ACETAMINOPHEN 500 MG TAB PO PRN ×2 (06:28→23:17)
--- NOTE | 2019-05-07 08:47 | Orthopedic Progress Note ---
Date of Service May 07, 2019 Assessment & Plan (1) Neurogenic claudication due to lumbar spinal stenosis: We will continue with physical therapy today. I have ordered an Occupational Therapy consult. She prefers to go home with her father and siblings but there is a possible need for rehab. We have discussed transitioning from IV pain medication to oral. Continue with bowel regimen. Continue with DVT prophylaxis in the form of teds and SCDs. She has a positive history of a PE several years ago. Anticipate discharge within the next 24 to 48 hours. Supervising Physician Co-Signing Physician Notes Dr. Mario Blake Subjective Patient is postoperative day 2 multilevel lumbar decompression fusion. She is seen today in conjunction with her father. She has complaints of back pain. She is quite anxious and worried about having adequate pain control. Postoperatively she was placed on a ketamine drip in the ICU. She is now on the orthopedic floor. Has back pain only. Denies radicular leg pain. Was able to ambulate about 30 feet with physical therapy yesterday. SORAIDA drain output last shift was 30 cc. Positive flatus but no bowel movement. Review of Systems Review of Systems: All systems reviewed & are unremarkable except as noted in HPI & below Physical Exam Physical Exam: She is alert and oriented x3. Sitting in chair eating breakfast. Lumbar dressing is clean dry and intact Calves soft nontender bilaterally strength is intact bilateral lower extremities.. Results & Data Vital Signs (Past 12 Hours) Vital Signs Temp Pulse Resp BP BP Pulse Ox 05/07/19 05:54 37.2 C 93 H 18 118/78 93 05/06/19 23:12 37.2 C 90 16 97/66 L 91 05/06/19 22:09 24 112/73 96
[2019-05-07] MEDS: PANTOprazole 40 MG TAB PO SCH (09:38)
[2019-05-07] MEDS: FLUOXETINE HCL 20 MG CAP PO SCH (09:38)
[2019-05-07] MEDS: clonazePAM 0.5 MG TAB PO SCH (09:38)
[2019-05-07] MEDS: ARIPiprazole 10 MG TAB PO SCH (21:29)
[2019-05-07] MEDS: TRAZODONE HCL 100 MG TAB PO SCH (21:29)
[2019-05-07] MEDS: ZOLPIDEM TARTRATE 10 MG TAB PO SCH (21:29)
[2019-05-07] MEDS: DOCUSATE SODIUM/SENNA 50/8.6MG TAB PO SCH (22:41)
[2019-05-08] MEDS: OXYCODONE HCL IR 5 MG TAB (IMMEDIATE RELEASE) PO PRN ×3 (04:45→14:24)
[2019-05-08] MEDS: POLYETHYLENE (MIRALAX) 17 GM PACK PO SCH ×2 (04:46→11:05)
--- NOTE | 2019-05-08 07:53 | Anesthesiology Progress Note ---
Date of Service May 08, 2019 Anesthesia Post Procedure Vital Signs Vital Signs: Temp Pulse Pulse Resp BP Pulse Ox 05/08/19 07:24 36.8 C 98 H 16 103/66 95 05/07/19 23:01 37.2 C 84 16 100/66 93 05/07/19 14:58 36.7 C 105 H 16 108/61 91 Pain Intensity Right Back: Pain Intensity: 4 Back: Pain Intensity: 9 Notes Mental Status: alert / awake / arousable and participated in evaluation Patient Amnestic to Procedure: Yes Nausea / Vomiting: adequately controlled Pain: adequately controlled Airway Patency, RR, SpO2: stable & adequate BP & HR: stable & adequate Hydration State: stable & adequate Anesthetic Complications: no major complications apparent and Pt Satisfied with anesthetic care
[2019-05-08] MEDS: PANTOprazole 40 MG TAB PO SCH (08:27)
[2019-05-08] MEDS: clonazePAM 0.5 MG TAB PO SCH (08:27)
[2019-05-08] MEDS: FLUOXETINE HCL 20 MG CAP PO SCH (08:27)
--- NOTE | 2019-05-08 11:05 | Discharge Summary ---
Date of Service May 08, 2019 Admission HPI Per Admitting Provider This is a 44-year-old female who presents with chronic persistent back and bilateral leg pain. After failing extensive course of nonoperative care is here for surgical intervention. Principal Diagnosis Lumbar spinal stenosis with neurogenic claudication Discharge Data Allergies Allergy/AdvReac Type Severity Reaction Status Date / Time Sulfa (Sulfonamide AdvReac Unknown Rash Verified 05/05/19 09:24 Antibiotics) Consultations 05/05/19 15:40 Consult Case Management - Discharge Planning Routine Consult Tung Nut Grower Routine 05/05/19 16:02 Consult Case Management - Discharge Planning Routine Procedures Performed Operation Date: 05/05/19 10:25 Actual Procedures p L2-S1 Decompression and Fusion with Spinal Cord Monitoring; Application of BMP; Interbody at (Not Applicable) - Mario Blake DO Ordered Studies 05/05/19 10:25 FL fluoroscopy <1hr Routine FL lumbar spine 2-3V Routine Hospital Course (1) Neurogenic claudication due to lumbar spinal stenosis: Patient underwent multilevel lumbar decompression fusion tolerated this well was taken to the ICU postoperatively as she was on a ketamine drip. The following morning she was doing quite nicely and was transferred to orthopedic floor. She progressed with occupational therapy therapy and physical therapy without difficulty on postop day #3 strength is intact she is ambulating with a walker pain was controlled subsequently discharged home. Discharge orders instructions from the chart for further review. Total Time Total Time Spent Total Time Spent (In Minutes): 20 minutes Discharge Plan Discharge Items Patient Disposition: Home - Self-Care Reason For Visit: LUMBAR SPINAL STENOSIS W/NEUROGENIC CLAUDICATION Discharge Diagnosis: Lumbar spinal stenosis with neurogenic claudication Activity: As commented below Non-emergency contact: Primary Care Provider Call non-emergency contact if: you have any medication questions Follow-up/Referrals: Ashlyn Stephenson PA-C [Primary Care Provider] - Diet: Regular Addtl Attending Provider Instructions: ACTIVITY RECOMMENDATIONS: SELF CARE INSTRUCTIONS AFTER THORACIC/LUMBAR FUSIONS 1. You may walk to your tolerance. It is good exercise for your legs and back. Expect some back and intermittent leg aches and pains. 2. You may perform "counter-top" level activities (make a sandwich, adore with a project, etc.). 3. No bending or lifting of more than 10 pounds or back twisting of any nature (roll like a log when turning in bed). 4. You may ride in a car for 20-30 minutes at a time. No driving until after your first visit with your doctor. 5. Frequent changes of position and restricting sitting to 30 minutes at a time will help limit the amount of back spasms and stiffness you may experience. 6. You may discontinue the use of ambulatory aids (cane, crutches, etc.) once your strength and confidence allow. 7. You may supply chain intern the shower and let water strike your incision when you arrive home at least once daily. Do not take a tub bath, sit in a hot tub or go into a swimming pool until after your first recheck in the office. SPECIAL CARE INSTRUCTIONS: VERY IMPORTANT TO READ AND REVIEW A. Your surgical incision has been closed with a cosmetic suture under the skin that will dissolve in about 6 weeks. In 14 days, you can use a pair of clean scissors and cut the suture that is left outside of the skin at the ends of your incision. 1. The small skin tapes can be removed 7 days after surgery if they have not fallen off by that point. 2. You may keep the wound open to air as much as possible to promote healing after post-op day number 5 unless told otherwise by your doctor. 3. If you think the wound looks like it is becoming infected (redness or worsening drainage) and/or you are experiencing fever, chill or worsening back pain and muscle spasms, contact the office so that we may evaluate you as soon as possible. B. Complications are uncommon, but please contact us if you have any signs or symptoms of: 1. wound infection (fever higher than 102.5 degrees F, redness, separation of wound, drainage, or increasing pain from the incision) 2. blood clots in legs (pain, swelling, redness and warmth in legs) 3. urinary tract infection (fever higher than 102.5 degrees F, burning upon urination or increased frequency of urination) 4. nerve problems (inability to walk on your toes or heels, numbness, loss of bowel or bladder control) 5. any other symptoms that concern you C. Please call the office at if you have any concerns or que stions about your operation or recovery. D. No smoking! Smoking drastically decreases the chance of a solid fusion. E. Do not take any anti-inflammatory medications (Indocin, Advil, Motrin, Aspirin, Naprosyn, etc.) as these may inhibit the chance of a solid fusion. Tylenol is okay to take for pain. MANAGING PAIN AFTER SPINAL SURGERY 1. Narcotic medication is intended for short-term use and will be provided for surgical pain. Surgical pain usually lasts for a period of 4-6 weeks. Narcotic medication includes Percocet, Vicodin, Darvocet, Tylenol #3 or Lortab. 2. Longer-term pain is more appropriately treated with non-narcotic medication such as Tylenol ES. 3. Muscle spasm is not appropriately treated with narcotics. Muscle relaxers such as Soma, Flexeril or Skelaxin can be used along with Tylenol ES. 4. Remember that we all live with some "aches and pains". This is not unusual or uncommon after an injury or as we get older. a. Back pain is expected and may include muscle spasms for 4 to 6 weeks after surgery. The pain should gradually improve. If the pain worsens for no apparent reason, please contact the office. b. Intermittent leg pain may also be experienced and should not be concerned about unless it worsens for no apparent reason. If so, please contact the office. 5. We will provide appropriate medication within the normal guidelines of their prescribed use. We will also be very cautious and aware of potential abuse and extended duration of patients' medication needs. a. Pain medications are for your comfort and to assist with sleep and rest so that the tissue can heal. They are not provided in order to return to normal activity and should not be used through the day. To do so or worsening pain at night can result from ongoing tissue damage and development of tolerance to the prescribed medicine. 6. Please allow 2-3 days to process refills. Prescriptions will not be mailed but must be picked up at the office. FOLLOW UP VISIT: Keep your scheduled follow-up appointment. Any questions, please call the office at . Pending Studies at Discharge: No Stand-Alone Forms: My [place] [employer], Smoking Cessation Medications and DC Order Prescriptions: New oxycodone 5 mg tablet 5 mg PO Q6H PRN (Reason: pain, severe) Qty: 40 RF: 0 Continued fluoxetine [Prozac] 40 mg Capsule 40 mg PO QAM RF: 0 tizanidine [Zanaflex] 4 mg Tablet 4 mg PO Q8H PRN (Reason: Muscle Spasm) RF: 0 clonazepam 1 mg Tablet 0.5 mg PO DAILY RF: 0 omeprazole 40 mg Capsule,Delayed Release(Dr/Ec) 40 mg PO QAM RF: 0 oxycodone 15 mg Tablet 15 mg PO QID RF: 0 trazodone 100 mg Tablet 400 mg PO HS RF: 0 ranitidine HCl [Zantac 75] 75 mg Tablet 75 mg PO HS RF: 0 metoclopramide HCl 10 mg Tablet 10 mg PO TID PRN (Reason: Nausea And Vomiting) RF: 0 acetaminophen [Tylenol Extra Strength] 500 mg Tablet 1,000 mg PO QAM RF: 0 zolpidem 10 mg Tablet 10 mg PO HS RF: 0 aripiprazole [Abilify] 20 mg Tablet 20 mg PO HS RF: 0 Stool Softeners And Dulcalox 1 dose UD RF: 0 Discharge Orders: Discharge Order (Routine); Ordered 05/08/19 Ordered By: Mario Blake Admission Data Admit Date/Time: 05/05/19 14:11 Attending Provider: Mario Blake Admit Provider: Mario Blake Primary Care Provider: Ashlyn Stephenson Other Providers: Lucas Ventura
== END 2019-05-08 15:36 | disposition home or self-care (01) | DRG 455 ==
LOC: ASU 08:20 → 1E 14:11 → 3W 05-06 15:34